=== PATIENT | male | born 1940 | race Caucasian/White ===

== ENCOUNTER 2020-05-27 12:23 | Outpatient (CLI) | payer MEDICARE, SELFPAY ==
--- NOTE | 2020-05-27 12:35 | XRR_ITS ---
PROCEDURE INFORMATION: Exam: XR Lumbosacral Spine, 2 or 3 Views Exam date and time: 05/27/2020 12:57 PM Age: 79 years old Clinical indication: Low back pain and sciatica TECHNIQUE: Imaging protocol: XR of the lumbosacral spine, 2 or 3 views. COMPARISON: No relevant prior studies available. FINDINGS: Vertebrae: Mild lumbar levoscoliosis. Relatively mild degenerative disc changes L1 through L4 with mild disc space narrowing, endplate sclerosis and vertebral body spurring. These changes are most pronounced at L2-L3 on the right Soft tissues: Moderate aortoiliac atherosclerotic calcification. XR/XR lumbar spine 2-3V* [id number] IMPRESSION: Mild lumbar levoscoliosis. Degenerative disc changes most pronounced L2-L3.
== END 2020-05-27 12:24 | disposition home or self-care (01) ==
LOC: RAD 12:30
PROVIDERS: PCP Nurse Practitioner Family; Visit Provider Emergency Medicine
DX: M54.30 Sciatica, unspecified side (principal); S39.012A Strain of muscle, fascia and tendon of lower back, initial encounter; X58.XXXA Exposure to other specified factors, initial encounter; M41.86 Other forms of scoliosis, lumbar region
CPT/HCPCS: 72100; 81000